=== PATIENT | male | born 1960 | race Caucasian/White ===

== ENCOUNTER 2021-11-23 18:10 | Observation (INO) | payer OTHER ==
[~2021-11-23] VITALS: Ht 165.1 cm; Wt 75.0 kg
--- NOTE | 2021-11-23 18:25 | NUR ---
PT ESCORTED TO ROOM 10 FOR EVAL SOB
[2021-11-23] MEDS ORDERED: GABAPENTIN100 MG PO (18:26)
[2021-11-23] MEDS ORDERED: METFORMIN500 M2 PO (18:26)
[2021-11-23] MEDS ORDERED: VITAMIN B-12500 MCG PO (18:27)
[2021-11-23] MEDS ORDERED: VITAMIN D7 XX (18:27)
[2021-11-23] MEDS ORDERED: CVS OMEPRAZOLE20 M1 (18:27)
[2021-11-23 18:41] LABS: HEMATOCRIT 43.4 % (39.0-50.0); HEMOGLOBIN 15.7 g/dl (14.0-18.0); IMMATURE GRANULOCYTES 2.2 % (0.0-5.0); MEAN CORPUSCULAR HGB 31.8 pG CALC (26.0-32.0); MEAN CORPUSCULAR HGB CONC 36.2 g/dL CAL (32.0-36.0); NEUT# 3.9 thou/uL (1.82-7.42); RED BLOOD COUNT 4.93 mill/uL (4.70-6.10); RED CELL DISTRI WIDTH 11.8 % (11.5-15.5)
--- NOTE | 2021-11-23 18:55 | NUR ---
UPDATED PT ON POC. WHEEZING THROUGHOUT LUNG MORRISON. NO DISTRESS
[2021-11-23 18:59] LABS: ALBUMIN 4.1 g/dL (3.2-5.0); ALKALINE PHOSPHATASE 223 u/l (38-126); ANION GAP 19 (6-22 (CALC)); BILIRUBIN, TOTAL 0.8 mg/dL (0.0-1.4); BUN 20 mg/dL (8-23); BUN/CREATININE RATIO 18 (12-20 (CALC)); CARBON DIOXIDE 19 mmol/l (22-30); CHLORIDE 97 mmol/l (95-108); CREATININE 1.1 mg/dL (0.7-1.3); GFR > 60 ML/MIN (>=60 (CALC)); GFR FOR AFR.AMER. > 60 ML/MIN (>=60 (CALC)); POTASSIUM 4.6 mmol/l (3.5-5.1); SGOT/AST 24 u/l (19-48); SODIUM 131 mmol/l (137-146); TOTAL PROTEIN 7.7 g/dL (6.3-8.2)
--- NOTE | 2021-11-23 19:22 | NUR ---
BREATHING TREATMENT GIVEN.
--- NOTE | 2021-11-23 19:43 | NUR ---
PT RESTING. CONTINUES TO HAVE INCREASED WORK OF BREATHING WITH FEW SCATTERED WHEEZES.
[2021-11-23 20:00] LABS: URINE BILIRUBIN - DIPSTICK NEGATIVE (NEGATIVE); URINE BLOOD DIPSTICK TRACE-INTACT (NEGATIVE); URINE COLOR YELLOW; URINE GLUCOSE - DIPSTICK >=1000 mg/dL (NEGATIVE); URINE KETONE NEGATIVE (NEGATIVE); URINE LEUK ESTERASE NEGATIVE (NEGATIVE); URINE PH 5.5 (4.5-8.0); URINE PROTEIN - DIPSTICK NEGATIVE (NEG-TRACE); URINE UROBILINOGEN - DIPSTICK 0.2 E.U./dL (0.2)
[2021-11-23 20:01] LABS: URINE NITRITE - DIPSTICK NEGATIVE (Negative)
--- NOTE | 2021-11-23 21:24 | NUR ---
REPORT TO MED SURG.
[2021-11-23 21:34] VITALS: BP 133/7
--- NOTE | 2021-11-23 21:34 | NUR ---
PATIENT ADMITTED TO [facility] VIA WC TO ROOM 261. ALERT AND ORIENTED. ABLE TO MAKE NEEDS KNOWN. ASSESSMENT COMPLETE. ORIENTED PATIENT TO ROOM, CALL LIGHT AND TV. IV SITE #20 TO THE RT. AC PATENT. FRESH ICE WATER AT BEDSIDE. PATIENT ASKED FOR SOMETHING SMALL TO SNACK ON BECAUSE HE WAS HUNGRY. CALL LIGHT AND BELONGINGS REMAIN IN REACH.
--- NOTE | 2021-11-23 21:35 | NUR ---
PT TRANSFERRED TO M/S ROOM 261
[2021-11-24] VITALS: BP 141/59
--- NOTE | 2021-11-24 00:35 | NUR ---
PATIENT RESTING IN BED. NO COMPLAINTS VOICED. CALL LIGHT AND BELONGINGS REMAIN IN REACH.
[2021-11-24 04:00] VITALS: BP 117/67
--- NOTE | 2021-11-24 04:00 | NUR ---
PATIENT RESTING IN BED. NO COMPLAINTS VOICED. NO SHORTNESS OF BREATH NOTED. ''I HOPE TO GO HOME TODAY''. CALL LIGHT AND BELONGINGS REMAIN IN REACH.
[2021-11-24 05:35] LABS: HEMATOCRIT 38.9 % (39.0-50.0); HEMOGLOBIN 13.8 g/dl (14.0-18.0); IMMATURE GRANULOCYTES 3.2 % (0.0-5.0); MEAN CELL VOLUME 88.8 fL CALC (80.0-100.0); MEAN CORPUSCULAR HGB 31.5 pG CALC (26.0-32.0); MEAN CORPUSCULAR HGB CONC 35.5 g/dL CAL (32.0-36.0); NEUT# 8.6 thou/uL (1.82-7.42); RED BLOOD COUNT 4.38 mill/uL (4.70-6.10)
[2021-11-24 05:51] LABS: ALBUMIN 3.6 g/dL (3.2-5.0); ALKALINE PHOSPHATASE 127 u/l (38-126); ANION GAP 18 (6-22 (CALC)); BILIRUBIN, TOTAL 0.5 mg/dL (0.0-1.4); BUN 16 mg/dL (8-23); BUN/CREATININE RATIO 13 (12-20 (CALC)); CARBON DIOXIDE 18 mmol/l (22-30); CHLORIDE 103 mmol/l (95-108); CREATININE 1.2 mg/dL (0.7-1.3); GFR > 60 ML/MIN (>=60 (CALC)); GFR FOR AFR.AMER. > 60 ML/MIN (>=60 (CALC)); POTASSIUM 4.2 mmol/l (3.5-5.1); SGOT/AST 20 u/l (19-48); SODIUM 135 mmol/l (137-146); TOTAL PROTEIN 6.4 g/dL (6.3-8.2)
--- NOTE | 2021-11-24 08:00 | NUR ---
PT SEMI MCBRIDE POSITION UPON ENTERING ROOM. PT STATES NO PAIN AT THIS TIME. ACCUCHECK THIS MORNING 263, COVERED PER SLIDING SCALE. ASSESSMENT AND VITALS ALLOWED AT THIS TIME. PT A&O X3 , LUNG SOUNDS ARE CLEAT UPPER/LOWER LOBES ANTERIOR AND POSTERIOR HEART SOUNDS ARE REGULAR.TELE MONITOR IN PLACE. CONTINOUSE MONITORING BY ED. BOWEL SOUNDS ACTIVE X4. IV LOCATED 20 RAC INFUSING PER EMAR. FLUSHED WITH NO RESISTANCE. RADIAL AND PEDAL PULSE STRONG BILATERALLY. FALL/SAFETY PRECAUTIONS IN PLACE. CALL LIGHT WITHIN REACH
[2021-11-24 11:00] VITALS: BP 166/68
[2021-11-24] MEDS ORDERED: METFORMIN HYD1000 MG PO (11:36)
--- NOTE | 2021-11-24 13:50 | NUR ---
PT WITH FAMILY MEMBER AT BEDSIDE AT THIS TIME. STATES NO PAIN. CALL LIGHT WITHIN REACH. IV PATENT, INFUSING NS 0.45% PER EMAR ORDER. FALL SAFTEY PRECAUTIONS IN PLACE.
[2021-11-24] MEDS ORDERED: LANTUS SOL100 UNIT/M SC (15:37)
[2021-11-24] MEDS ORDERED: PEN NEEDLES31 GX6MM (15:38)
[2021-11-24] MEDS ORDERED: MEDDOSEPAK PO (15:38)
[2021-11-24] MEDS ORDERED: ZPAK PO (15:38)
--- NOTE | 2021-11-24 16:00 | NUR ---
FAMILY AT BEDSIDE. CALL LIGHT WITHIN REACH. NO DISTRESS NOTED. FALLSAFTEY PRECAUTIONS IN PLACE. TELE MONITOR IN PLACE, CONTINOUS MONITORING BYED
[2021-11-24 16:38] VITALS: BP 134/57
[2021-11-24] MEDS ORDERED: VENTOLIN HFA108 MCG IN (17:02)
--- NOTE | 2021-11-24 18:21 | NUR ---
Discharge instructions given. Patient verbalizes understanding of same. Discharged in stable condition via Ambulatory to Home with spouse. All belongings sent with pt. IV REMOVED CATHETERE INTACT. DR. WONG CARD GIVEN AND PRESCRIPTIONS
== END 2021-11-24 18:21 | disposition home or self-care (01) | DRG 204 ==
LOC: ED 18:10 → ED-I 19:40 → ED 19:51 → MS2 19:52
PROVIDERS: Family Medicine; ADMIT Internal Medicine; ATTEND Internal Medicine
DX: R06.02 Shortness of breath (principal); R05.9 Cough, unspecified; E11.65 Type 2 diabetes mellitus with hyperglycemia; I10 Essential (primary) hypertension; Z23 Encounter for immunization; Z79.84 Long term (current) use of oral hypoglycemic drugs; Z20.822 Contact with and (suspected) exposure to COVID-19
CPT/HCPCS: G0378; J1650

== ENCOUNTER 2024-05-29 12:11 | Observation (INO) | payer MEDICARE, OTHER ==
[2024-05-29] VITALS (13 sets, daily range): BP systolic 111–164; BP diastolic 51–78
[~2024-05-29] VITALS: Ht 165.1 cm; Wt 62.2 kg
[~2024-05-29 12:11] MED LIST: CVS OMEPRAZOLE20 M1; GABAPENTIN100 MG PO; LANTUS SOL100 UNIT/M SC; MEDDOSEPAK PO; METFORMIN HYD1000 MG PO; METFORMIN500 M2 PO; PEN NEEDLES31 GX6MM; VENTOLIN HFA108 MCG IN; VITAMIN B-12500 MCG PO; VITAMIN D7 XX; ZPAK PO
[2024-05-29] MEDS ORDERED: SODIUM CHLORIDE 0.9% 1,000 ML IV ONE (12:40)
[2024-05-29 13:00] LABS: URINE BILIRUBIN - DIPSTICK Negative (NEGATIVE); URINE BLOOD DIPSTICK Small (NEGATIVE); URINE COLOR Yellow; URINE GLUCOSE - DIPSTICK >=1000 mg/dL (NEGATIVE); URINE KETONE 15 mg/dL (NEGATIVE); URINE LEUK ESTERASE Negative (NEGATIVE); URINE NITRITE - DIPSTICK Negative (Negative); URINE PH 5.5 (4.5-8.0); URINE PROTEIN - DIPSTICK Negative (NEG-TRACE); URINE RBC 0-2 RBC/hpf (0-5); URINE SPECIFIC GRAVITY <=1.005; URINE UROBILINOGEN - DIPSTICK 0.2 E.U./dL (0.2)
[2024-05-29 13:02] LABS: BASO% 0.4 % (0-3); EOS% 2.7 % (0-8); HEMATOCRIT 34.2 % (39.0-50.0); HEMOGLOBIN 12.1 g/dl (14.0-18.0); IMMATURE GRANULOCYTES 0.5 % (0.0-5.0); LYMPH% 27.2 % (15-41); MEAN CELL VOLUME 89.8 fL CALC (80.0-100.0); MEAN CORPUSCULAR HGB 31.8 pG CALC (26.0-32.0); MEAN CORPUSCULAR HGB CONC 35.4 g/dL CAL (32.0-36.0); MONO% 5.9 % (2-13); NEUT# 3.53 thou/uL (1.82-7.42); NEUT% 63.3 % (42-76); RED BLOOD COUNT 3.81 mill/uL (4.70-6.10); RED CELL DISTRI WIDTH 12.1 % (11.5-15.5)
[2024-05-29 13:12] LABS: ALBUMIN 3.8 g/dL (3.2-5.0); ALKALINE PHOSPHATASE 220 u/l (38-126); BUN 22 mg/dL (8-23); BUN/CREATININE RATIO 19 (12-20 (CALC)); CARBON DIOXIDE 21 mmol/l (22-30); CHLORIDE 99 mmol/l (95-108); CREATININE 1.2 mg/dL (0.7-1.3); ESTIMATED GFR 67 ML/MIN (>=90 (CALC)); POTASSIUM 4.1 mmol/l (3.5-5.1); SGOT/AST 35 u/l (19-48); TOTAL PROTEIN 6.4 g/dL (6.3-8.2)
[2024-05-29 13:27] LABS: ANION GAP 11 (6-22 (CALC)); SODIUM 127 mmol/l (137-146)
[2024-05-29 13:28] LABS: BILIRUBIN, TOTAL 0.6 mg/dL (0.2-1.3)
[2024-05-29] MEDS ORDERED: INSULIN REGULAR (HUMAN) 100 UNIT/ML INJ IV ONE (13:50)
[2024-05-29] MEDS ORDERED: ACETAMINOPHEN 325 MG/TAB PO PRN (15:15)
[2024-05-29] MEDS ORDERED: SODIUM CHLORIDE 0.9% 1,000 ML IV PRN (15:15)
[2024-05-29] MEDS ORDERED: MAGNESIUM HYDROXIDE 30 ML UDC PO PRN (15:15)
[2024-05-29] MEDS ORDERED: DEXTROSE 250 ML IV PRN (15:35)
[2024-05-29] MEDS ORDERED: INSULIN LISPRO 100 UNITS/ML ML SC SCH ×3 (15:45→17:00)
[2024-05-29] MEDS ORDERED: Heparin SODIUM (Porcine) 5,000 UNITS/ML SDV SC SCH (22:00)
[2024-05-30] VITALS (7 sets, daily range): BP systolic 108–139; BP diastolic 50–70
[2024-05-30 05:00] LABS: BASO% 0.8 % (0-3); EOS% 3.8 % (0-8); HEMATOCRIT 32.2 % (39.0-50.0); HEMOGLOBIN 11.1 g/dl (14.0-18.0); IMMATURE GRANULOCYTES 0.8 % (0.0-5.0); LYMPH% 46.5 % (15-41); MEAN CELL VOLUME 90.7 fL CALC (80.0-100.0); MEAN CORPUSCULAR HGB 31.3 pG CALC (26.0-32.0); MEAN CORPUSCULAR HGB CONC 34.5 g/dL CAL (32.0-36.0); MONO% 7.5 % (2-13); NEUT# 1.93 thou/uL (1.82-7.42); NEUT% 40.6 % (42-76); RED BLOOD COUNT 3.55 mill/uL (4.70-6.10); RED CELL DISTRI WIDTH 12.5 % (11.5-15.5)
[2024-05-30 05:18] LABS: BILIRUBIN, TOTAL 0.7 mg/dL (0.2-1.3); POTASSIUM 3.4 mmol/l (3.5-5.1); TOTAL PROTEIN 5.2 g/dL (6.3-8.2)
[2024-05-30 05:22] LABS: ALBUMIN 2.9 g/dL (3.2-5.0)
[2024-05-30] MEDS ORDERED: INSULIN DETEMIR 100 UNITS/ML SC SCH ×2 (09:00→09:30)
[2024-05-30] MEDS ORDERED: OMEPRAZOLE20 MG PO (10:21)
[2024-05-30] MEDS ORDERED: GABAPENTIN 300 MG/CAP PO SCH (10:30)
[2024-05-30] MEDS ORDERED: INSULIN LISPRO 100 UNITS/ML ML SC SCH (11:30)
[2024-05-30] MEDS ORDERED: metFORMIN HYDROCHLORIDE 500 MG/TAB PO SCH ×2 (17:30)
[2024-05-31] VITALS: BP 133/63
[2024-05-31 00:37] VITALS: BP 133/63
[2024-05-31 04:00] VITALS: BP 121/69
[2024-05-31 04:39] VITALS: BP 121/69
[2024-05-31 05:23] LABS: BASO% 0.4 % (0-3); EOS% 2.9 % (0-8); HEMATOCRIT 35.6 % (39.0-50.0); HEMOGLOBIN 12.3 g/dl (14.0-18.0); IMMATURE GRANULOCYTES 0.8 % (0.0-5.0); LYMPH% 44.9 % (15-41); MEAN CELL VOLUME 91.5 fL CALC (80.0-100.0); MEAN CORPUSCULAR HGB 31.6 pG CALC (26.0-32.0); MEAN CORPUSCULAR HGB CONC 34.6 g/dL CAL (32.0-36.0); NEUT# 2.19 thou/uL (1.82-7.42); RED BLOOD COUNT 3.89 mill/uL (4.70-6.10); RED CELL DISTRI WIDTH 12.5 % (11.5-15.5)
[2024-05-31 05:37] LABS: ALBUMIN 2.9 g/dL (3.2-5.0); BILIRUBIN, TOTAL 0.7 mg/dL (0.2-1.3); POTASSIUM 3.4 mmol/l (3.5-5.1); TOTAL PROTEIN 5.2 g/dL (6.3-8.2)
[2024-05-31 06:46] VITALS: BP 123/62
[2024-05-31] MEDS ORDERED: INSULIN DETEMIR 100 UNITS/ML SC SCH (09:00)
[2024-05-31] MEDS ORDERED: POTASSIUM CHLORIDE 20 MEQ/TAB PO SCH (09:00)
[2024-05-31] MEDS ORDERED: LANTUS100 UNIT SC (09:11)
[2024-05-31] MEDS ORDERED: NOVOLOG100 UNIT SC (09:11)
[2024-05-31] MEDS ORDERED: METFORMIN HCL500 M1 PO (09:13)
== END 2024-05-31 11:56 | disposition home or self-care (01) ==
LOC: ED 12:11 → ED-I 13:43 → ED 13:57 → MS2 13:58
PROVIDERS: Family Medicine; Nurse Practitioner Family; ADMIT Internal Medicine; ATTEND Internal Medicine
DX: E11.00 Type 2 diabetes mellitus with hyperosmolarity without nonketotic hyperglycemic-hyperosmolar coma (NKHHC) (principal); E87.1 Hypo-osmolality and hyponatremia; I10 Essential (primary) hypertension; D63.8 Anemia in other chronic diseases classified elsewhere; T38.3X6A Underdosing of insulin and oral hypoglycemic [antidiabetic] drugs, initial encounter; Z91.120 Patient's intentional underdosing of medication regimen due to financial hardship; Z87.442 Personal history of urinary calculi; Z79.84 Long term (current) use of oral hypoglycemic drugs; Z79.4 Long term (current) use of insulin; Z63.4 Disappearance and death of family member